=== PATIENT | female | born 1955 | race Caucasian/White ===

== ENCOUNTER 2018-04-28 07:51 | Day surgery (SDC) | payer MEDICARE, BC ==
[2018-04-28] MEDS ORDERED: LIDOCAINE HCL 1% MPF 30 SOL ONE (07:59)
[2018-04-28] MEDS ORDERED: PROPOFOL 500 MG/50 ML EMU IV ONE (07:59)
[2018-04-28 10:20] VITALS: BP 133/64; PULSE 63; RESP 20; TEMP 98; O2SAT 96
== END 2018-04-28 10:15 | disposition home or self-care (01) | DRG 951 ==
LOC: SURG 07:51
PROVIDERS: ATTEND Surgery
DX: Z12.11 Encounter for screening for malignant neoplasm of colon (principal); D12.0 Benign neoplasm of cecum; D12.2 Benign neoplasm of ascending colon
CPT/HCPCS: J2001; J2704